=== PATIENT | male | born 2000 | race American Indian/Alaskan Native ===

== ENCOUNTER 2019-05-01 20:47 | Emergency (ER) | payer MEDICAID, OTHER ==
--- NOTE | 2019-05-01 21:19 | Emergency Department Report ---
Blank Doc - Documentation Documentation: pt has a hx of anxiety pt states that is on klonopin, does not have medicine states that from out of town pt states having substernal chest pain that began two days ago feels like a sharp pain pt states that has been to three different [facility] <KAI LOMELI - Last Filed: 05/01/19 21:16> - Documentation Documentation: A physician and/or other qualified medical personnel has recommended that the patient receive further examination and/or treatment beyond their Medical Screening Exam. The risks and benefits were explained. The patient was informed of their right to emergency care. Patient left before final disposition of their medical condition. This note has been generated by me, Dr. Sherrell Fields III, MD, the [facility] for the emergency department. I have not seen this patient personally. <SHERRELL FIELDS - Last Filed: 05/03/19 15:51>
[2019-05-01 21:34] VITALS: BP 113/75
--- NOTE | 2019-05-01 22:07 | XRay Report ---
PROCEDURE: XR CHEST ROUTINE 2V TECHNIQUE: PA and lateral chest radiographs were obtained. HISTORY: cp COMPARISONS: None. FINDINGS: Heart: Normal. Mediastinum/Vessels: Normal. Lungs/Pleural space: Normal. Bony thorax: No acute osseous abnormality. IMPRESSION: Normal examination. This document is electronically signed by Victor Hugo Mejia MD., May 01 2019 10:05:26 PM ET
== END 2019-05-01 22:25 | disposition left against medical advice (07) ==
LOC: ED 20:47
DX: E86.0 Dehydration (principal); Z53.21 Procedure and treatment not carried out due to patient leaving prior to being seen by health care provider
CPT/HCPCS: 71046; 93005; 93010